=== PATIENT | male | born 1950 | race Caucasian/White ===

== ENCOUNTER 2023-11-18 14:31 | Emergency (ER) | payer MEDICARE, SELFPAY ==
[2023-11-18 14:32] VITALS: BP 120/67; PULSE 53; RESP 16; TEMP 36.3; O2SAT 95; BMI 28.2
[2023-11-18 14:49] VITALS: BP 120/67; PULSE 57; RESP 18; O2SAT 95
[2023-11-18 14:51] LABS: Glucose Point of Care 106 mg/dL (70-110)
[2023-11-18 15:16] LABS: Glucose Point of Care 100 mg/dL (70-110)
[2023-11-18 15:19] VITALS: BP 129/77; PULSE 66; RESP 16; O2SAT 94
--- NOTE | 2023-11-18 15:29 | ED_ITS ---
HPI - Altered Mental Status 2 General: Chief Complaint: Altered Mental Status Stated Complaint: ams Time Seen by Provider: 11/18/23 15:08 History of Present Illness: 73-year-old male presents emergency room he is on insulin at home and [facility] his blood sugar was at 59. Blood sugar improved to 175 after he was given 150 mL of D10 and route. Patient does have a history of diabetes mellitus when he arrived here he was 89 EMS had gotten the 175 and now he is awake and alert hungry and able to eat he denies any chest pain or abdominal pain no nausea vomiting. Related Data Allergies Allergy/AdvReac Type Severity Reaction Status Date / Time No Known Allergies Allergy Verified 11/18/23 14:50 Review of Systems 2 Const: Denies: fever(s) or chills Card: Denies: chest pain Resp: Denies: dyspnea GI: Denies: abdominal pain : Denies: dysuria, urinary frequency or urinary urgency Musc: Denies: neck pain or back pain Skin/Breast: Denies: rash Physical Exam 2 Const: COMMON NORMALS: no acute distress GENERAL APPEARANCE: cooperative and comfortable ORIENTATION/CONSCIOUSNESS: Yes awake, Yes oriented to person, Yes oriented to place and Yes oriented to time HENMT: COMMON NORMALS: normocephalic, atraumatic and hearing grossly normal bilaterally HEAD & SCALP: normocephalic and atraumatic Resp: COMMON NORMALS: normal respiratory effort, No retractions, No use of accessory muscles and clear to auscultation bilaterally AUSCULTATION: clear to auscultation bilaterally Cardio: COMMON NORMALS: regular rate, regular rhythm and No murmurs present (Cardio) RATE: regular rate RHYTHM: regular rhythm GI: COMMON NORMALS: Soft to palpation and No hepatosplenomegaly present A USCULTATION: Yes normoactive bowel sounds PALPATION: Yes Soft to palpation, No Tenderness to palpation present (GI), No Guarding due to palpation present (GI) and Yes No hepatosplenomegaly present Extremity: COMMON NORMALS: normal to inspection, capillary refill normal, no clubbing, cyanosis or edema, no calf tenderness and no pedal edema Neuro: SENSORIUM/ORIENTATION: Yes oriented to person, Yes oriented to place and Yes oriented to time Skin: COMMON NORMALS: no rashes or lesions noted GENERAL SKIN EXAM: no rashes or lesions noted Course 2 Vital Signs: Vital signs: Vital Signs Temperature 97.4 F L 11/18/23 14:32 Pulse Rate 54 L 11/18/23 15:49 Respiratory Rate 22 H 11/18/23 15:49 Blood Pressure 129/72 11/18/23 15:49 Pulse Oximetry 93 11/18/23 15:49 Oxygen Delivery Me thod Room Air 11/18/23 14:32 MDM - Altered Mental Status Medical Decision Making Patient received glucose from EMS initially he had good response then decreased again but he was awake alert. He has eaten ambulated and his blood sugars remained stable. Will discharge patient home. Monitor blood sugars closely be sure to eat regularly scheduled meals after taking insulin. Lab Data 11/18/23 15:58 11/18/23 15:58 Laboratory Results WBC Cancelled 11/18/23 15:58 Corrected WBC Cancelled 11/18/23 15:58 RBC Cancelled 11/18/23 15:58 Hgb Cancelled 11/18/23 15:58 Hct Cancelled 11/18/23 15:58 MCV Cancelled 11/18/23 15:58 MCH Cancelled 11/18/23 15:58 MCHC Cancelled 11/18/23 15:58 RDW Cancelled 11/18/23 15:58 Plt Count Cancelled 11/18/23 15:58 MPV Cancelled 11/18/23 15:58 Gran % Cancelled 11/18/23 15:58 Neut % (Auto) Cancelled 11/18/23 15:58 Lymph % (Auto) Cancelled 11/18/23 15:58 [place] % (Auto) Cancelled 11/18/23 15:58 Eos % (Auto) Cancelled 11/18/23 15:58 Baso % (Auto) Cancelled 11/18/23 15:58 Neut # (Auto) Cancelled 11/18/23 15:58 Lymph # (Auto) Cancelled 11/18/23 15:58 [place] # (Auto) Cancelled 11/18/23 15:58 Eos # (Auto) Cancelled 11/18/23 15:58 Baso # (Auto) Cancelled 11/18/23 15:58 Absolute Gran (auto) Cancelled 11/18/23 15:58 Nucleated RBC % (auto) Cancelled 11/18/23 15:58 Nucleated RBCs # Cancelled 11/18/23 15:58 Sodium 140 mmol/L (136-145) 11/18/23 15:58 Potassium 4.8 mmol/L (3.5-5.1) 11/18/23 15:58 Chloride 105 mmol/L (98-107) 11/18/23 15:58 Carbon Dioxide 21 mmol/L (22-29) L 11/18/23 15:58 Anion Gap 18.8 (5-19) 11/18/23 15:58 BUN 52 mg/dL (8-23) H 11/18/23 15:58 Creatinine 2.3 mg/dL (0.7-1.2) H 11/18/23 15:58 GFR Calculation Not Reportable 11/18/23 15:58 Glucose 111 mg/dL (65-115) 11/18/23 15:58 POC Glucose 159 mg/dL (70-110) H 11/18/23 16:27 Calculated Osmolality 305 mOsm/kg (285-295) H 11/18/23 15:58 Calcium 8.8 mg/dL (8.5-10.5) 11/18/23 15:58 Total Bilirubin 0.2 mg/dL (0.15-1.2) 11/18/23 15:58 AST 18 U/L (0-40) 11/18/23 15:58 ALT 12 U/L (0-41) 11/18/23 15:58 Alkaline Phosphatase 118 U/L (40-130) 11/18/23 15:58 Total Protein 7.1 g/dL (6.6-8.7) 11/18/23 15:58 Albumin 3.9 g/dL (3.5-5.2) 11/18/23 15:58 Globulin 3.2 g/dL (1.3-4.6) 11/18/23 15:58 Urine Color Yellow (Yellow) 11/18/23 16:38 Urine Appearance Clear (CLEAR) 11/18/23 16:38 Urine pH 5.5 (5-7) 11/18/23 16:38 Ur Specific [place] 1.014 (1.005-1.030) 11/18/23 16:38 Urine Protein 3+ (Negative) A 11/18/23 16:38 Urine Glucose (UA) 1+ (Normal) H 11/18/23 16:38 Urine Ketones Negative (Negative) 11/18/23 16:38 Urine Blood Negative (Negative) 11/18/23 16:38 Urine Nitrate Negative (Negative) 11/18/23 16:38 Urine Bilirubin Negative (Negative) 11/18/23 16:38 Urine Urobilinogen 0.2 mg/dL (Negative) 11/18/23 16:38 Ur Leukocyte Esterase Negative (Negative) 11/18/23 16:38 Urine RBC 6-10 /hpf (0-2) 11/18/23 16:38 Urine WBC 0-5 /hpf (0-5) 11/18/23 16:38 Ur Squamous Epith Cells 0-5 /hpf (0-5) 11/18/23 16:38 Amorphous Sediment Not Reportable 11/18/23 16:38 Urine Bacteria None seen /hpf (NONE) 11/18/23 16:38 Hyaline Casts 3.30 /lpf 11/18/23 16:38 No radiology studies performed this visit Discharge Plan Discharge Patient Disposition: Home Clinical Impression: Hypoglycemia, Diabetes mellitus Condition: Stable Discharge Orders: Discharge ED (Routine); Ordered 11/18/23 Ordered By: Bill Nettles Referrals: Joycelyn Mg APN [Family Provider] - Patient Instructions: Hypoglycemia in a Person with Diabetes (ED), Opioid Safety, Pain Management Activity Restrictions/Additional Instructions: Thank you for choosing [facility] for your healthcare needs today. It is very important that you follow up as instructed or that you return to the Emergency Department should you have concerns or if your condition changes or worsens in any way. You are seen in the emergency room for low blood sugar. Your blood sugar maintain sustained after given sugar supplementation and eating. Recommend following blood sugar closely at home and eat scheduled meals after getting your insulin. Coding Level of Care Code ED Residence Counselor for Blane Adkins
[2023-11-18 15:49] VITALS: BP 129/72; PULSE 54; RESP 22; O2SAT 93
[2023-11-18 16:24] LABS: Alanine Aminotransferase 12 U/L (0-41); Albumin Level 3.9 g/dL (3.5-5.2); Alkaline Phosphatase 118 U/L (40-130); Anion Gap 18.8 (5-19); Aspartate Amino Transferase 18 U/L (0-40); Blood Urea Nitrogen 52 mg/dL (8-23); Calcium 8.8 mg/dL (8.5-10.5); Carbon Dioxide 21 mmol/L (22-29); Chloride 105 mmol/L (98-107); Globulin 3.2 g/dL (1.3-4.6); Glucose 111 mg/dL (65-115); Osmolality Calculated 305 mOsm/kg (285-295); Potassium 4.8 mmol/L (3.5-5.1); Sodium 140 mmol/L (136-145); Total Bilirubin 0.2 mg/dL (0.15-1.2); Total Protein 7.1 g/dL (6.6-8.7)
[2023-11-18 16:31] LABS: Glucose Point of Care 159 mg/dL (70-110)
[2023-11-18 16:59] LABS: Bilirubin Urine Negative (Negative); Blood Urine Negative (Negative); Glucose Urine UA 1+ (Normal); Ketones Urine Negative (Negative); Leukocyte Esterase Urine Negative (Negative); Nitrate Urine Negative (Negative); Protein Urine 3+ (Negative); Specific Gravity, Urine 1.014 (1.005-1.030); Urine Appearance Clear (CLEAR); Urine Color Yellow (Yellow); Urobilinogen Urine 0.2 mg/dL (Negative); pH Urine 5.5 (5-7)
[2023-11-18 17:04] LABS: Add Urine Microscopic? YES; Bacteria Urine None Seen /hpf; Squamous Epithelial Cell Urine 0-5 /hpf (0-5); WBC Urine 0-5 /hpf (0-5)
[2023-11-18 17:16] LABS: UA Slide Review UA Slide Review Perf
[2023-11-18 17:32] VITALS: BP 123/94; PULSE 54; O2SAT 93
== END 2023-11-18 17:35 | disposition home or self-care (01) ==
PROVIDERS: Emergency Provider Family Medicine; Family Provider Nurse Practitioner Family; PCP Nurse Practitioner Family
DX: E11.649 Type 2 diabetes mellitus with hypoglycemia without coma (principal)
CPT/HCPCS: 36416; 80053; 81001; 82962; 85025; 99283